=== PATIENT | male | born 1990 | race Caucasian/White ===

== ENCOUNTER 2019-10-13 10:00 | Emergency (ER) | payer SELFPAY ==
[2019-10-13 10:08] VITALS: BP 122/95; PULSE 104; RESP 16; TEMP 36.5; O2SAT 98; BMI 18.8
--- NOTE | 2019-10-13 10:13 | CT_ITS ---
WS: [id number] CT facial bones w con [id number] REASON FOR EXAM: mass IV CONTRAST ADMINISTERED: Omnipaque 300, 95 mL TOTAL EXAM DLP: 1022.[address] scans at [facility] use at least one of these dose optimization techniques: automat ed exposure control; mA and/or kV adjustment per patient size (includes targeted exams where dose is matched to clinical indication); or iterative reconstruction. FINDINGS: The left nasal passages markedly obstructed with a distended lesion that appears to be a la rge polyp. Line the maxillary antrum show bilateral air-fluid levels. Similar findings are noted in t he ethmoid sinuses. The large mass in the left nasal passage most likely is polypoid other lesions including neoplasms ca nnot be excluded and direct visualization recommended. There is no destructive changes of the bony structures to suggest osteomyelitis. The stomach splenoid sinuses as well as the frontal sinuses are normal. CT/CT facial bones w con [id number] IMPRESSION: Acute ethmoid and maxillary sinusitis A large bulky mass is seen in the left nasal cavity most likely polyp.
--- NOTE | 2019-10-13 10:23 | ED_ITS ---
HPI - Skin/Abscess/Foreign Bdy General: Chief complaint: Skin/Abscess/Foreign Body Stated complaint: KNOT ON THROAT Time Seen by Provider: 10/13/19 10:08 History of Present Illness: HPI narrative: Patient complains of a knot on the right side of his face at the jawline. It has been present for approximately 2- 3 days. MD complaint: abscess/boil Onset (ago): day(s) Tetanus up to date: unsure Location: face Severity: moderate Quality: aching, dull, constant and foreign body sensation Pain Consistency: constant Relieving factors: none Exacerbating factors: none Context: none Associated symptoms: Reports no associated symptoms Review of Systems General: Reports: 10 or more systems reviewed and unremarkable except in HPI and below PFSH ED PFSH: Social History Smoking and tobacco status: current every day smoker Physical Exam HENMT: COMMON NORMALS: normocephalic, hearing grossly normal bilaterally, external ears normal, external nose normal, nasal mucous membranes and turbinates normal, moist oral mucous membranes and oropharynx normal HEAD & SCALP: normocephalic NOSE: external nose normal and nasal mucous membranes and turbinates normal EXTERNAL EAR: Yes external ears normal Neck/C-Spine: COMMON NORMALS: full ROM, no lymphadenopathy, supple and no meningeal signs GENERAL: Yes trachea midline, Yes tender and Yes mass Neuro: MENINGEAL SIGNS: Yes no meningeal signs Course Vital Signs: Vital signs: Vital Signs Temperature 97.7 F 10/13/19 10:08 Pulse Rate 75 10/13/19 12:16 Respiratory Rate 16 10/13/19 10:08 Blood Pressure 107/79 10/13/19 12:16 Pulse Oximetry 97 10/13/19 12:16 [facility] - Skin/Abscess/Foreign Bdy Imaging Data^: Other CT: Radiologist's impression: large abscess in the soft tissue of the lower right jaw and upper neck Discharge Plan Discharge Patient Disposition: Home, Self-Care Clinical Impression: Cellulitis Qualifiers: Site of cellulitis: face Qualified Code(s): L03.211 - Cellulitis of face Abscess of skin or subcutaneous tissue Qualifiers: Site of cutaneous abscess: face Qualified Code(s): L02.01 - Cutaneous abscess of face Condition: Stable Prescriptions: New Augmentin 875-125 mg tablet 1 tab PO Q12H Qty: 20 RF: 0 No Action Tylenol Extra Strength 500 mg Tablet 500 mg PO PRN RF: 0 Discharge Orders: Discharge Order (Routine); Ordered 10/13/19 Ordered By: Gene Marie Coding Level of Care Code ED Exchange Trouble Shooter for Dewayneg Fwd Exam Expanded Problem Focused
[2019-10-13] MEDS: iohexol 300 mg/mL 100 mL Btl IV (11:43)
[2019-10-13 12:16] VITALS: BP 107/79; PULSE 75; O2SAT 97
[2019-10-13 13:35] VITALS: BP 114/80; PULSE 88; RESP 18; O2SAT 97
== END 2019-10-13 13:35 | disposition home or self-care (01) ==
PROVIDERS: Emergency Provider Family Medicine
DX: L02.01 Cutaneous abscess of face (principal); L03.211 Cellulitis of face; F17.210 Nicotine dependence, cigarettes, uncomplicated
CPT/HCPCS: 12345; 70487; 96365; 99283; J0690; Q9967

== ENCOUNTER 2020-03-16 13:24 | Inpatient (IN) | payer SELFPAY ==
--- NOTE | 2020-03-16 13:30 | ED_ITS ---
HPI - Psych General: Chief Complaint: Psychiatric Symptoms Stated Complaint: SI Time Seen by Provider: 03/16/20 13:26 Source: patient and EMS Mode of arrival: EMS Limitations: no limitations History of Present Illness: HPI Narrative: 29-year-old male states that he has been having severe depression and suicidality. He states been having increasing active suicidal thoughts over the last week. Patient states that he is scared he is going to kill himself and called EMS because he wants voluntarily to be admitted. Denies any worsening or improving factors. Patient states he was admitted to psychiatric facility 10 years ago and is not on any meds currently. MD complaint: suicidal ideation Onset (ago): day(s) Duration: constant History of same: Yes Relieving factors: none Exacerbating factors: none Associated symptoms: Reports depression and suicidal ideation Review of Systems Const: Denies: fever(s), chills, body aches or change in appetite Eyes: Denies: blurry vision or eye discomfort ENMT: Denies: throat pain or dental pain Card: Denies: chest pain Resp: Denies: dyspnea GI: Denies: abdominal pain, nausea, vomiting or diarrhea : Denies: dysuria Musc: Denies: neck pain or back pain Skin/Breast: Denies: rash Neuro: Denies: headache(s) Psych: Reports: depression and suicidal ideation Miguel/Lymph: Denies: easy bruising All/Imm: Denies: urticaria PFSH ED PFSH: Social History Smoking and tobacco status: current every day smoker Physical Exam Const: COMMON NORMALS: no acute distress, patient oriented x3 and healthy appearing HENMT: COMMON NORMALS: normocephalic and atraumatic HEAD & SCALP: normocephalic and atraumatic Eye: COMMON NORMALS: Equal, round and reactive pupils present and EOMs intact bilaterally PUPIL: Yes Equal, round and reactive pupils present Neck/C-Spine: COMMON NORMALS: full ROM and supple Chest: COMMONS NORMALS: normal inspection of the chest and normal palpation of entire chest wall Resp: COMMON NORMALS: normal respiratory effort, No retractions, No use of accessory muscles and clear to auscultation bilaterally AUSCULTATION: clear to auscultation bilaterally Cardio: COMMON NORMALS: regular rate, regular rhythm and No murmurs present (Cardio) RATE: regular rate RHYTHM: regular rhythm GI: COMMON NORMALS: Normal to inspection, nondistended, normoactive bowel sounds present, Soft to palpation, non-tender and no masses PALPATION: Yes Soft to palpation Extremity: COMMON NORMALS: normal to inspection and full ROM Neuro: COMMON NORMALS: patient oriented x3, moves all extremities and no focal motor deficits Psych: COMMON NORMALS: mental status grossly normal and cooperative MOOD & AFFECT: Yes depressed mood THOUGHT CONTENT: Yes Suicidality present Skin: COMMON NORMALS: no rashes or lesions noted and no wounds GENERAL SKIN EXAM: no rashes or lesions noted MDM - Psych MDM Narrative: Medical decision making narrative: Patient presents for suicidal ideations. Patient voluntarily wanting to be admitted. I spoke to psychiatrist Dr. Gallardo and patient is medically cleared and will admit. Patient has been stable while here. Lab Data: Labs: Lab Results 03/16/20 03/16/20 Range/Units 13:53 13:53 WBC 9.0 (4.0-10.0) 10^3/ uL RBC 5.17 (4.1-5.3) 10^6/u L Hgb 16.8 H (11.7-16.6) g/dL Hct 51.9 (42.0-52.0) % MCV 100.4 H (80-94) fL MCH 32.5 (28.0-34.0) pg MCHC 32.4 (30.0-36.0) g/dL RDW 15.1 (12.1-15.1) % Plt Count 240 (130-400) 10^3/c mm MPV 9.3 (7.4-10.4) fL Neut % (Auto) 52.1 % Lymph % (Auto) 35.3 % Forest % (Auto) 9.1 % Eos % (Auto) 2.2 % Baso % (Auto) 1.1 % Neut # (Auto) 4.68 (1.8-7.7) 10^3/u L Lymph # (Auto) 3.2 (0.8-4.8) 10^3/u L Forest # (Auto) 0.8 (0.2-0.9) 10^3/u L Eos # (Auto) 0.2 (0.0-0.8) 10^3/u L Baso # (Auto) 0.1 (0.0-0.1) 10^3/u L Nucleated RBC % (a uto) 0 % Nucleated RBCs # 0.0 /100WBC Sodium 143 (136-145) mmol/L Potassium 4.1 (3.5-5.1) mmol/L Chloride 103 (98-107) mmol/L Carbon Dioxide 24 (22-29) mmol/L Anion Gap 20.1 H (5-19) BUN 10 (6-20) mg/dL Creatinine 0.7 (0.7-1.2) mg/dL GFR Calculation 134.3 H (90-130) mL/min Glucose 73 (65-115) mg/dL Calculated Osmolal ity 294 (285-295) mOsm/k g Calcium 9.1 (8.5-10.5) mg/dL Total Bilirubin 0.4 (0.15-1.2) mg/dL AST 76 H (0-40) U/L ALT 51 H (0-41) U/L Alkaline Phosphata se 109 (40-130) IU/L Total Protein 8.3 (6.6-8.7) g/dL Albumin 4.7 (3.5-5.2) g/dL Globulin 3.6 (1.3-4.6) g/dL Salicylates < 0.3 L (3-10) mg/dL Acetaminophen < 5.0 L (10-30) ug/mL Ethyl Alcohol 152 H (0-10) mg/dL Discharge Plan Discharge Patient Disposition: Admitted As Inpatient Clinical Impression: Suicidal ideation Condition: Stable Coding Level of Care Code ED Plastic Parts Fabricator for Nhan Fwd Exam Comprehensive
[2020-03-16 13:37] VITALS: BP 126/81; PULSE 110; RESP 18; TEMP 36.7; O2SAT 96; BMI 18.0
[2020-03-16 14:00] LABS: Basophils # 0.1 10^3/uL (0.0-0.1); Basophils % 1.1 %; Eosinophils # 0.2 10^3/uL (0.0-0.8); Eosinophils % 2.2 %; Hematocrit 51.9 % (42.0-52.0); Hemoglobin 16.8 g/dL (11.7-16.6); Lymphocytes # 3.2 10^3/uL (0.8-4.8); Lymphocytes % 35.3 %; Mean Corpuscular HGB Conc 32.4 g/dL (30.0-36.0); Mean Corpuscular Hemoglobin 32.5 pg (28.0-34.0); Mean Corpuscular Volume 100.4 fL (80-94); Mean Platelet Volume 9.3 fL (7.4-10.4); Monocytes # 0.8 10^3/uL (0.2-0.9); Monocytes % 9.1 %; Neutrophils # 4.68 10^3/uL (1.8-7.7); Neutrophils % 52.1 %; Nucleated Red Blood Cells % 0 %; Platelet Count 240 10^3/cmm (130-400); Red Blood Count 5.17 10^6/uL (4.1-5.3); Red Cell Distribution Width 15.1 % (12.1-15.1)
[2020-03-16] MEDS: LORazepam 1 mg Tablet PO (14:02)
[2020-03-16 14:26] LABS: Alanine Aminotransferase 51 U/L (0-41); Albumin Level 4.7 g/dL (3.5-5.2); Alcohol Level 152 mg/dL (0-10); Alkaline Phosphatase 109 IU/L (40-130); Anion Gap 20.1 (5-19); Aspartate Amino Transferase 76 U/L (0-40); Blood Urea Nitrogen 10 mg/dL (6-20); Calcium 9.1 mg/dL (8.5-10.5); Carbon Dioxide 24 mmol/L (22-29); Chloride 103 mmol/L (98-107); Creatinine Clr Calc Pharmacy 115.9178; Globulin 3.6 g/dL (1.3-4.6); Glomerular Filtration Rate 134.3 mL/min (90-130); Glucose 73 mg/dL (65-115); Osmolality Calculated 294 mOsm/kg (285-295); Potassium 4.1 mmol/L (3.5-5.1); Sodium 143 mmol/L (136-145); Total Bilirubin 0.4 mg/dL (0.15-1.2); Total Protein 8.3 g/dL (6.6-8.7)
[2020-03-16 14:28] LABS: Acetaminophen < 5.0 ug/mL (10-30); Salicylate < 0.3 mg/dL (3-10)
[2020-03-16 14:54] VITALS: BP 119/83; PULSE 117; RESP 20; TEMP 36.5; O2SAT 96
[2020-03-16 15:23] LABS: Amphetamines Screen Urine Negative (Negative); Barbiturates Screen Urine Negative (Negative); Benzodiazepines Screen Urine Negative (Negative); Cocaine Screen Urine Negative (Negative); Opiate Screen Urine Negative (Negative); PCP Screen Urine Negative (Negative); THC Screen Urine Positive (Negative)
--- NOTE | 2020-03-16 17:03 | PM.NHP ---
Providers/Chief Complaint Admitting Physician: Sami Gallardo M.D. Chief Complaint: SI HPI NPU History of Present Illness King Miner is a 29 year old male who has been having severe depression and suicidality. He has had increasingly active suicidal thoughts over the last week. Patient states that he is scared he is going to kill himself and called EMS because he wanted to be admitted voluntarily. Denies any worsening or improving factors. Patient states he was admitted to psychiatric facility 10 years ago and is not on any meds currently. Review of Systems Narrative: Const: Denies: fever(s), chills, body aches or change in appetite Eyes: Denies: blurry vision or eye discomfort ENMT: Denies: throat pain or dental pain Card: Denies: chest pain Resp: Denies: dyspnea GI: Denies: abdominal pain, nausea, vomiting or diarrhea : Denies: dysuria Musc: Denies: neck pain or back pain Skin/Breast: Denies: rash Neuro: Denies: headache(s) Psych: Reports: depression and suicidal ideation Miguel/Lymph: Denies: easy bruising All/Imm: Denies: urticaria Meds NPU Home Medications Medication Instructions Recorded Confirmed Last Taken Type No Known Home Medications 03/16/20 03/16/20 Unknown History Allergies Allergy/AdvReac Type Severity Reaction Status Date / Time No Known Allergies Allergy Verified 10/13/19 10:14 PFSH NPU PFSH: Social History Smoking and tobacco status: current every day smoker Other Psychiatric History: Other Psychiatric History: Patient says he has been treated for bipolar disorder since he was 17. He was seeing a counselor since age 13. Vitals/I&O/Wt Last Vital Signs Temp 97.7 F 03/16/20 14:54 Pulse 117 H 03/16/20 14:54 Resp 20 H 03/16/20 14:54 BP 119/83 03/16/20 14:54 Pulse Ox 96 03/16/20 14:54 Weight last 48 hrs Weight 115 lb Physical Exam Narrative: EXAM NARRATIVE: Const: no acute distress, patient oriented x3 and healthy appearing HENMT: normocephalic and atraumatic Eye: Equal, round and reactive pupils and EOMs intact bilaterally Neck/C-Spine: full ROM and supple Chest: normal inspection of the chest and normal palpation of entire chest wall Resp: normal respiratory effort, No retractions, No use of accessory muscles and clear to auscultation bilaterally Cardio: regular rate, regular rhythm and No murmurs GI: Normal to inspection, non-distended, normoactive bowel sounds , Soft to palpation, non-tender and no masses Extremity: normal to inspection and full ROM Neuro: patient oriented x3, moves all extremities and no focal motor deficits Psych: mental status grossly normal and cooperative MOOD & AFFECT: depressed mood THOUGHT CONTENT: Suicidality Skin: no rashes or lesions noted and no wounds GENERAL SKIN EXAM: no rashes or lesions noted Data NPU : 03/16/20 13:53 03/16/20 13:53 A&P Assessment and plan (1) Major depress dis, severe: Dr. Polk and the patient will discuss pharmacotherapy and initiate same. Status: Acute (2) Nightmare disorder: Initiation of prazosin. Consider referral for sleep study. Status: Acute Involuntary Hold Information 96 Hour Hold: 96 Hour Involuntary Admission: No Attestations NPU Medical Necessity Statement*: I anticipate 5-7 midnights at the very least. Time Spent in Patient Care: Greater than 35 minutes (>than 50% of time spent in counselling and/or direct pt care on unit). 90 minutes Coding Level of Care Code Acute District Medical Examiner for g Fwd Diagnoses Major depress dis, severe F32.2 Nightmare disorder F51.5
[2020-03-16] MEDS: nicotine 2 mg Gum BUCCAL ×2 (17:27→22:10)
[2020-03-16] MEDS: hyDROXYzine 25 mg Capsule 50 MG PO (17:27)
--- NOTE | 2020-03-16 17:27 | PC.NURSE ---
Addendum entered by Annabel Yo LPN 03/16/20 18:42: prn med effective no further c/o anxiety Original Note: PRN VISTARIL 50 MG GIVEN PO PER PT C/O ANXIETY. PT IN ROOM, WITHDRAWN, TEARFUL C/O JUST FEELING DOWN WILL CONT TO MONITOR
[2020-03-16 20:43] VITALS: BP 106/67; PULSE 124; RESP 18; TEMP 36.4; O2SAT 94
[2020-03-16] MEDS: trazodone 50 mg Tablet PO (20:48)
[2020-03-16] MEDS: OLANZapine 5 mg ODT PO (20:48)
--- NOTE | 2020-03-16 23:20 | PC.NURSE ---
Addendum entered by Saida Strange RN 03/17/20 04:54: Pt responded well to medications given. He reports a decrease in anxiety and slept through the night soundly Original Note: PRN's trazodone/visteril/nicotine gum Patient received 50mg PO visteril for anxiety, 50mg PO Trazodone for sleep, and requested nicotine gum for tobacco withdrawl. Will continue to monitor patient.
[2020-03-17 06:00] VITALS: BP 143/78; PULSE 115; RESP 16; TEMP 36.7; O2SAT 96
[2020-03-17] MEDS: multivitamin therapeutic Tablet 1 TAB PO (08:13)
[2020-03-17] MEDS: folic acid 1 mg Tablet PO (08:13)
[2020-03-17] MEDS: thiamine 100 mg Tablet PO (08:13)
--- NOTE | 2020-03-17 12:54 | P.PN_ITS ---
Subjective NPU Subjective: Interval history: Patient presents today reporting that he is doing okay. He acknowledges that patient does have some role in his situation but also identifies that depression and mood instability also play a role. He endorsed having bipolar disorder and having a history of being on Lexapro, Remeron, trazodone and Risperdal but is been over a decade and he does not really recall what it was like. Once he turns 19 he discontinued the medications and he has been struggling in his life with addiction and instability volatile explosive relationships ever since. We discussed the risk benefits and alternatives of restarting the Lexapro as well as starting Lamictal and he understood and agreed to proceed as is documented in this note including our discussion was a discussion of the risks of Hall-Bang syndrome with Lamictal. He additionally reported that he in Dr. Gallardo discussed prazosin for his nightmares. Mental Status Exam MSE Comments: This is a slender white male with adequate dress, grooming and eye contact with a significant scar in the middle of his forehead starting at his hairline and going down about two th[address] way. No abnormal movements except for psychomotor retardation. Cooperative with exam in no acute distress. Speech was decreased rate and volume mood described as depressed affect congruent. Thought process organized. Thought content: Denied isolation he does endorse thoughts of self-harm. There were no delusions reported or noted, he denied any auditory visual hallucinations. Attention and concentration were intact and memory appeared reliable but none were formally tested. He is alert and oriented x3. Insight and judgment are fair, impulse control is limited. Vitals/I&O/Wt Last Vital Signs Temp 97.6 F 03/17/20 22:00 Pulse 91 03/17/20 22:00 Resp 18 03/17/20 22:00 BP 111/74 03/17/20 22:00 Pulse Ox 96 03/17/20 22:00 Weight last 48 hrs Weight 52.163 kg Data NPU : 03/16/20 13:53 03/16/20 13:53 A&P Assessment and plan (1) Nightmare disorder: Status: Acute (2) Major depress dis, severe: Status: Acute (3) Suicidal ideation: Status: Acute (4) PTSD (post-traumatic stress disorder): Status: Acute (5) Borderline personality disorder: Status: Acute Additional A&P Information This is a 29-year-old white male with a long history of trauma, cluster B pathology mood instability depression and anxiety as well as active substance abuse who presents open to treatment and initiation of medication. 1. Continue current medication.; Start Lexapro 10 mg p.o. every morning and Lamictal 25 mg p.o. every morning with the plan to titrated to 100 mg over the span of 4 weeks. 2. Continue every 15 minute checks for safety. 3. Encourage individual, group and milieu therapy. 4. Work with treatment team for to establish aftercare and recommend sober living at the highest level of treatment to which he is willing to commit. Involuntary Hold Information 96 Hour Hold: 96 Hour Involuntary Admission: No Attestations NPU Medical Necessity Statement*: Inpatient hospitalization is medically necessary and the clinically appropriate intervention at this time. We will monitor me dications, add medications and make changes as indicated. He will be in the hospital for over 2 midnights. Likely length of stay 2 to 4 days. Coding Level of Care Code Acute President And Chief Executive Officer for Nhan Ruano Diagnoses Nightmare disorder F51.5 Major depress dis, severe F32.2 Suicidal ideation R45.851 PTSD (post-traumatic stress disorder) F43.10 Borderline personality disorder F60.3
[2020-03-17 14:00] VITALS: BP 114/80; PULSE 94; RESP 18; TEMP 36.3; O2SAT 97
[2020-03-17] MEDS: nicotine 2 mg Gum BUCCAL ×2 (15:03→17:59)
[2020-03-17 22:00] VITALS: BP 111/74; PULSE 91; RESP 18; TEMP 36.4; O2SAT 96
[2020-03-17] MEDS: trazodone 50 mg Tablet PO (22:10)
[2020-03-17] MEDS: hyDROXYzine 25 mg Capsule 50 MG PO (22:10)
[2020-03-17] MEDS: OLANZapine 5 mg ODT PO (22:11)
[2020-03-18 06:00] VITALS: BP 133/85; PULSE 81; RESP 16; TEMP 36.5; O2SAT 97
[2020-03-18] MEDS: escitalopram 10 mg Tablet PO (08:44)
[2020-03-18] MEDS: multivitamin therapeutic Tablet 1 TAB PO (08:44)
[2020-03-18] MEDS: folic acid 1 mg Tablet PO (08:44)
[2020-03-18] MEDS: lamoTRIgine 25 mg Tablet PO (08:44)
[2020-03-18] MEDS: thiamine 100 mg Tablet PO (08:44)
--- NOTE | 2020-03-18 13:48 | PM.NPN ---
Subjective NPU Subjective: Interval history: King presented today reporting that he is tolerating the medication thus far. We discussed the risks, benefits and alternatives of allowing another day to adjust to the medication and then discharging him tomorrow and he understood and agreed to proceed as is documented in this note. He is somewhat anxious about not missing any more work but is very committed to the idea of changing his patterns through outpatient treatment. He reports he is eating fine and sleeping better. Mental Status Exam MSE Comments: This is a slender white male with adequate dress, grooming and eye contact with a significant scar in the middle of his forehead starting at his hairline and going down about two th[address] way. No abnormal movements except for improving psychomotor retardation. Cooperative with exam in no acute distress. Speech was decreased rate and volume mood described as a little better, affect congruent. Thought process organized. Thought content: Denied isolation he does endorse thoughts of self-harm. There were no delusions reported or noted, he denied any auditory visual hallucinations. Attention and concentration were intact and memory appeared reliable but none were formally tested. He is alert and oriented x3. Insight and judgment are improving, impulse control is limited, but improving. Vitals/I&O/Wt Last Vital Signs Temp 98.1 F 03/18/20 22:00 Pulse 85 03/18/20 22:00 Resp 18 03/18/20 22:00 BP 117/77 03/18/20 22:00 Pulse Ox 97 03/18/20 22:00 Data NPU : 03/16/20 13:53 03/16/20 13:53 A&P Additional A&P Information (1) Nightmare disorder: (2) Major depress dis, severe: (3) Suicidal ideation: (4) PTSD (post-traumatic stress disorder): (5) Borderline personality disorder: Additional A&P Information This is a 29-year-old white male with a long history of trauma, cluster B pathology mood instability depression and anxiety as well as active substance abuse who presents open to treatment and initiation of medication. 1. Continue current medication. 2. Continue every 15 minute checks for safety. 3. Encourage individual, group and milieu therapy. 4. Work with treatment team for to establish aftercare and recommend sober living at the highest level of treatment to which he is willing to commit. Involuntary Hold Information 96 Hour Hold: 96 Hour Involuntary Admission: No Attestations NPU Medical Necessity Statement*: Inpatient hospitalization is medically necessary and the clinically appropriate intervention at this time. We will monitor medications, add medications and make changes as indicated. Likely length of stay 1-3 days. Coding Level of Care Code Acute Pharmaceutical Scientist for Nhan Ruano
[2020-03-18 13:54] VITALS: BP 119/88; PULSE 101; RESP 18; TEMP 36.3; O2SAT 97
--- NOTE | 2020-03-18 15:04 | PC.RESP ---
Smoking Cessation information sent to patient.
[2020-03-18] MEDS: nicotine 2 mg Gum BUCCAL ×2 (17:41→21:00)
[2020-03-18] MEDS: prazosin 1 mg Capsule PO (21:00)
[2020-03-18 22:00] VITALS: BP 117/77; PULSE 85; RESP 18; TEMP 36.7; O2SAT 97
--- NOTE | 2020-03-19 04:26 | PC.NURSE ---
King is nervous about trying to go back to work at [employer] because he got drunk and thinks he lost his job
[2020-03-19 06:00] VITALS: BP 116/85; PULSE 91; RESP 16; TEMP 36.6; O2SAT 95
--- NOTE | 2020-03-19 06:17 | PM.NDC ---
Diagnoses at Discharge Discharge Diagnosis (1) Nightmare disorder: Status: Acute (2) Major depress dis, severe: Status: Acute (3) Suicidal ideation: Status: Resolved (4) PTSD (post-traumatic stress disorder): Status: Acute (5) Borderline personality disorder: Status: Acute Reason for Visit Reason for Visit: SI Brief History: History of Present Illness King Miner is a 29 year old male who has been having severe depression and suicidality. He has had increasingly active suicidal thoughts over the last week. Patient states that he is scared he is going to kill himself and called EMS because he wanted to be admitted voluntarily. Denies any worsening or improving factors. Patient states he was admitted to psychiatric facility 10 years ago and is not on any meds currently. Review of Systems Narrative: Const: Denies: fever(s), chills, body aches or change in appetite Eyes: Denies: blurry vision or eye discomfort ENMT: Denies: throat pain or dental pain Card: Denies: chest pain Resp: Denies: dyspnea GI: Denies: abdominal pain, nausea, vomiting or diarrhea : Denies: dysuria Musc: Denies: neck pain or back pain Skin/Breast: Denies: rash Neuro: Denies: headache(s) Psych: Reports: depression and suicidal ideation Miguel/Lymph: Denies: easy bruising All/Imm: Denies: urticaria Meds NPU Home Medications Medication Instructions Recorded Confirmed Last Taken Type No Known Home Medications 03/16/20 03/16/20 Unknown History Allergies Allergy/AdvReac Type Severity Reaction Status Date / Time No Known Allergies Allergy Verified 10/13/19 10:14 PFS NPU PFSH: Social History Smoking and tobacco status: current every day smoker Other Psychiatric History: Other Psychiatric History: Patient says he has been treated for bipolar disorder since he was 17. He was seeing a counselor since age 13. Hospital Course Hospital Course King presented to the emergency department reporting depression anxiety and possible an active addiction. He was admitted to the neuropsychiatric unit for definitive treatment of those issues. On the unit it was noted that he had been off of his medication for a long time and struggling with addiction. He quickly acclimated to the individual, group and milieu therapies available. He was started on Lexapro and a titration of Lamictal and he responded well to those medications. During the hospitalization, he had routine laboratory studies which were within normal limits except for a few outliers. Additionally he received a general medical evaluation which was also within normal limits and revealed no new acute processes. Discharge Summary At the time of discharge, he was absent lethality and psychosis. His mood and anxiety were well managed. He endorsed a plan to avoid all drugs of abuse and to follow-up with outpatient recommendations/treatment team recommendations. During hospitalization he was evaluated and deemed absent credible lethality and he had received maximum benefit from an inpatient hospitalization so he was discharged. Involuntary Hold Information 96 Hour Hold: 96 Hour Involuntary Admission: No Mental Status Exam MSE Comments: This is a slender white male with adequate dress, grooming and eye contact with a significant scar in the middle of his forehead starting at his hairline and going down about two th[address] way. No abnormal movements except for improving psychomotor retardation. Cooperative with exam in no acute distress. Speech was more normal rate and volume. Mood described as getting better, affect congruent. Thought process organized. Thought content: Denied isolation he does endorse thoughts of self-harm. There were no delusions reported or noted, he denied any auditory visual hallucinations. Attention and concentration were intact and memory appeared reliable but none were formally tested. He is alert and oriented x3. Insight and judgment are improving, impulse control is improving. Discharge Data Vitals: Last Vital Signs Temp 98.1 F 03/18/20 22:00 Pulse 85 03/18/20 22:00 Resp 18 03/18/20 22:00 BP 117/77 03/18/20 22:00 Pulse Ox 97 03/18/20 22:00 Discharge Plan Discharge Patient Disposition: Home Condition: Stable Prescriptions: New prazosin 1 mg Capsule 1 mg PO BEDTIME 30 Days Qty: 30 RF: 1 lamotrigine 25 mg Tablet 25 mg PO DAILY 19 Days Qty: 40 RF: 0 escitalopram oxalate 10 mg Tablet 10 mg PO DAILY 30 Days Qty: 30 RF: 1 Vitamin B-1 (mononitrate) 100 mg Tablet 100 mg PO DAILY 30 Days Qty: 30 RF: 1 Lamictal 100 mg tablet 100 mg PO DAILY 30 Days Qty: 30 RF: 1 Continued No Known Home Medications RF: 0 Discharge Orders: Discharge Order (Routine); Ordered 10/10/20 Ordered By: Rhys Polk Discharge Diet: Regular Discharge Activity: Resume usual activity Patient Instructions: Prazosin (By mouth), Lamotrigine (By mouth), Escitalopram (By mouth), Post Traumatic Stress Disorder (DC), Borderline Personality Disorder (DC), Anxiety (DC) Discharge Date/Time: 03/19/20 11:52 Discharge Attestations NPU Time Spent in Discharge Care*: less than 30 min Specific Discharge Activities: Specific discharge activities: educating patient, discussing with mental health case manager/social workers/dc planners, documenting/other paperwork and evaluating patient/reviewing data Coding Level of Care Code Acute Felt Hat Inspector And Packer for g Fwd Diagnoses Nightmare disorder F51.5 Major depress dis, severe F32.2 Suicidal ideation R45.851 PTSD (post-traumatic stress disorder) F43.10 Borderline personality disorder F60.3
[2020-03-19 06:35] VITALS: BP 116/85; PULSE 91; RESP 16; TEMP 36.6; O2SAT 95
[2020-03-19] MEDS: folic acid 1 mg Tablet PO (08:57)
[2020-03-19] MEDS: multivitamin therapeutic Tablet 1 TAB PO (08:57)
[2020-03-19] MEDS: lamoTRIgine 25 mg Tablet PO (08:57)
[2020-03-19] MEDS: escitalopram 10 mg Tablet PO (08:57)
[2020-03-19] MEDS: thiamine 100 mg Tablet PO (08:57)
[2020-03-19 11:47] VITALS: BP 116/85; PULSE 91; RESP 16; TEMP 36.6; O2SAT 95
== END 2020-03-19 11:52 | disposition home or self-care (01) | DRG 885 ==
LOC: ER 14:24 → NP 14:32
PROVIDERS: Emergency Medicine; Visit Provider Psychiatry & Neurology Psychiatry
DX: F33.2 Major depressive disorder, recurrent severe without psychotic features (principal); R45.851 Suicidal ideations; F43.11 Post-traumatic stress disorder, acute; F51.5 Nightmare disorder; F60.3 Borderline personality disorder; F17.210 Nicotine dependence, cigarettes, uncomplicated
CPT/HCPCS: 12345; 36415; 80053; 80306; 80307; 85025; 99284

== ENCOUNTER 2020-06-26 08:52 | Emergency (ER) | payer SELFPAY ==
[2020-06-26 08:54] VITALS: BP 120/74; PULSE 110; RESP 16; TEMP 36.4; O2SAT 98; BMI 18.8
--- NOTE | 2020-06-26 08:56 | XRR_ITS ---
PROCEDURE INFORMATION: Exam: XR Right Foot Complete Exam date and time: 06/26/2020 9:14 AM Age: 29 years old Clinical indication: Pain; Foot; Right; Additional info: Trauma TECHNIQUE: Imaging protocol: XR Right foot. Views: 3 or more views. COMPARISON: No relevant prior studies available. FINDINGS: Bones/joints: Normal. Soft tissues: Normal. XR/XR foot RT min 3V* [id number] IMPRESSION: No acute findings.
--- NOTE | 2020-06-26 08:56 | W.ED.LOWEXIN ---
HPI - Extremity Injury (Lower) General: Chief Complaint: Extremity Injury, Lower Stated Complaint: R FOOT/ ANKLE PAIN Time Seen by Provider: 06/26/20 08:53 History of Present Illness: HPI Narrative: Patient arrives via ambulance with complaint of right foot pain. Patient he stopped the ground last night and ever since then his heel has hurt and he cannot bear weight on it. complaint: foot injury Onset (ago): hour(s) Injury: Right: foot Type of Injury: blunt Place: street/outdoors Severity: mild Severity scale (1-10): 3 Relieving factors: immobilization Exacerbating factors: weight bearing Context: direct blow Associated symptoms: Reports no associated symptoms Other symptoms: none Treatments prior to arrival: NSAIDS Review of Systems Const: Denies: fever(s), chills or body aches Eyes: Denies: change in vision or blurry vision ENMT: Denies: throat pain or nasal congestion Card: Denies: chest pain or dyspnea on exertion Resp: Denies: dyspnea, productive cough or non-productive cough GI: Denies: abdominal pain, nausea or vomiting : Denies: difficulty urinating Musc: Reports: extremity pain (Heel right foot is tender after stomping ground last night) Skin/Breast: Denies: rash Neuro: Denies: headache(s) Psych: Denies: anxiety or depression Miguel/Lymph: Denies: easy bruising PFS ED PFSH: Social History Smoking and tobacco status: current every day smoker Physical Exam Const: COMMON NORMALS: no acute distress Extremity: RIGHT LOWER EXTREMITY: Yes foot & digits (Right heel is tender no swelling bruising or other problems noted) Psych: COMMON NORMALS: mental status grossly normal Course Vital Signs: Vital signs: Vital Signs Temperature 97.6 F 06/26/20 08:54 Pulse Rate 110 H 06/26/20 08:54 Respiratory Rate 16 06/26/20 09:01 Blood Pressure 120/74 06/26/20 08:54 Pulse Oximetry 98 06/26/20 08:54 MDM - Extremity Injury (Lower) MDM Narrative: Medical decision making narrative: Heal without fracture. Patient follow-up with his family medical provider. Can use ice as needed and ibuprofen [id number]. Imaging Data^: Xray Ortho: My impression: Possible subluxation talus, no fracture seen in the body. Discharge Plan Discharge Patient Disposition: Home Clinical Impression: Contusion of right heel Qualifiers: Encounter type: initial encounter Qualified Code(s): S90.31XA - Contusion of right foot, initial encounter Condition: Stable Prescriptions: New Motrin IB 200 mg capsule 400 mg PO TID PRN (Reason: pain) Qty: 14 RF: 0 No Action prazosin 1 mg capsule 1 mg PO BEDTIME@2200 RF: 0 Lamictal 100 mg tablet 100 mg PO DAILY@2200 RF: 0 Vitamin B-1 (mononitrate) 100 mg tablet 100 mg PO DAILY@2200 RF: 0 Discharge Orders: Discharge ED (Routine); Ordered 06/26/20 Ordered By: Jaylan Mckinney Discharge Diet: Usual diet Discharge Activity: Increase activity as tolerated Patient Instructions: Contusion in Adults (ED) Activity Restrictions/Additional Instructions: Follow-up with medical provider as directed. Take medications as prescribed. Return to the ER or your medical provider if condition worsens. Please read and understand discharge instructions. If any questions ask please. Coding Level of Care Code ED Mash Filter Press Operator for Nhan Fwd Exam Expanded Problem Focused
[2020-06-26 09:01] VITALS: RESP 16
--- NOTE | 2020-06-26 09:23 | PC.NURSE ---
Read and agree with triage and physical assessments.
[2020-06-26 09:32] VITALS: RESP 16
== END 2020-06-26 09:32 | disposition home or self-care (01) ==
PROVIDERS: Emergency Provider Nurse Practitioner Family
DX: S90.31XA Contusion of right foot, initial encounter (principal); F17.210 Nicotine dependence, cigarettes, uncomplicated; W22.09XA Striking against other stationary object, initial encounter
CPT/HCPCS: 12345; 73630; 99281; 99282

== ENCOUNTER 2020-09-06 13:38 | Inpatient (IN) | payer SELFPAY ==
[2020-09-06 14:19] VITALS: BP 137/94; PULSE 99; RESP 16; TEMP 36.5; O2SAT 98; BMI 18.8
--- NOTE | 2020-09-06 14:40 | PC.NURSE ---
patient stated this has been going on for his whole life, c/o left arm pain, no acute distress noted. patient stated he had thoughts of harm self, not sure which plan yet. monitor 1:1
[2020-09-06 15:24] LABS: Amphetamines Screen Urine Negative (Negative); Barbiturates Screen Urine Negative (Negative); Benzodiazepines Screen Urine Negative (Negative); Cocaine Screen Urine Negative (Negative); Opiate Screen Urine Negative (Negative); PCP Screen Urine Negative (Negative); THC Screen Urine Positive (Negative); Urine Appearance Clear (CLEAR); Urine Color Dark Yellow (Yellow)
[2020-09-06 15:24] LABS: Basophils % 0.3 %; Eosinophils % 0.1 %; Hematocrit 41.2 % (42.0-52.0); Hemoglobin 14.1 g/dL (11.7-16.6); Mean Corpuscular HGB Conc 34.2 g/dL (30.0-36.0); Mean Corpuscular Hemoglobin 33.6 pg (28.0-34.0); Mean Corpuscular Volume 98.1 fL (80-94); Mean Platelet Volume 10.2 fL (7.4-10.4); Monocytes # 0.5 10^3/uL (0.2-0.9); Monocytes % 4.5 %; Neutrophils # 8.77 10^3/uL (1.8-7.7); Neutrophils % 84.7 %; Nucleated Red Blood Cells % 0 %; Platelet Count 171 10^3/cmm (130-400); Red Cell Distribution Width 12.7 % (12.1-15.1); White Blood Count 10.4 10^3/uL (4.0-10.0)
[2020-09-06 15:25] LABS: Add Urine Microscopic? YES; Bilirubin Urine 1+ (Negative); Blood Urine 3+ (Negative); Glucose Urine UA Norm (Normal); Ketones Urine 2+ (Negative); Leukocyte Esterase Urine Negative (Negative); Nitrate Urine Negative (Negative); Protein Urine Neg (Negative); Urobilinogen Urine 1 mg/dL (Negative); pH Urine 6.5 (5-7)
[2020-09-06 15:28] LABS: Add Urine Culture? Yes; Bacteria Urine 1+ /hpf; Mucus Urine 2+ /hpf; RBC Urine 25-40 /hpf (0-2)
[2020-09-06 15:32] LABS: Alanine Aminotransferase 11 U/L (0-41); Albumin Level 4.3 g/dL (3.5-5.2); Alkaline Phosphatase 108 IU/L (40-130); Anion Gap 17.9 (5-19); Aspartate Amino Transferase 16 U/L (0-40); Blood Urea Nitrogen 8 mg/dL (6-20); Calcium 9.2 mg/dL (8.5-10.5); Carbon Dioxide 24 mmol/L (22-29); Chloride 102 mmol/L (98-107); Globulin 3.1 g/dL (1.3-4.6); Glucose 97 mg/dL (65-115); Osmolality Calculated 288 mOsm/kg (285-295); Potassium 3.9 mmol/L (3.5-5.1); Sodium 140 mmol/L (136-145); Total Bilirubin 0.3 mg/dL (0.15-1.2); Total Protein 7.4 g/dL (6.6-8.7)
[2020-09-06 15:33] LABS: Acetaminophen < 5.0 ug/mL (10-30); Alcohol Level < 10 mg/dL (0-10); Salicylate < 0.3 mg/dL (3-10)
--- NOTE | 2020-09-06 15:52 | PC.NURSE ---
scratches noted to left arm.
--- NOTE | 2020-09-06 16:47 | PC.NURSE ---
laceration to left arm noted, denied any pain at this time.
[2020-09-06 17:54] VITALS: BP 120/84; PULSE 85; RESP 16; O2SAT 97
[2020-09-06 18:10] VITALS: BP 130/82; PULSE 69; RESP 20; TEMP 36.6; O2SAT 99
[2020-09-06 21:14] VITALS: BP 111/75; PULSE 90; RESP 16; TEMP 36.2; O2SAT 99
--- NOTE | 2020-09-06 23:44 | W.ED.PSYCH ---
HPI - Psych General: Chief Complaint: Psychiatric Symptoms Stated Complaint: 96 PER OFFICER Time Seen by Provider: 09/06/20 14:20 Source: patient and police Mode of arrival: other (law enforcement) Limitations: no limitations History of Present Illness: HPI Narrative: This is a 29 year old male with a history of depression, suicidal ideations, who was brought in to the ED by law enforcement with complaints of suicidal ideations. He has a lot of social stressors including the fact that he is unemployed, homeless, and was in an argument with his girlfriend. He states i have wasted 28 years of my life and there is no reason to keep living. He admits to marijuana use. He was brought in to be evaluated and psychiatric management. MD complaint: suicidal ideation and feels depressed Onset (ago): day(s) (1) Duration: constant History of same: Yes Relieving factors: none Exacerbating factors: alcohol and drug use Associated psychiatric symptoms: depression and suicidal ideation Associated symptoms: Reports depression and suicidal ideation Treatments prior to arrival: none If self harm: admits thoughts of self harm and has plan Details of plan: he did not go into details, but says he can cut his wrist, jump off a water tower, or other things. Review of Systems General: Reports: 10 or more systems reviewed and unremarkable except in HPI and below Psych: Reports: depression and suicidal ideation [facility] ED PFSH: Medical History (Updated 09/14/20 @ 10:00 by [place] Fi[place] [facility] [place] Major depressive disorder, recurrent, in partial remission King feels that depression and past trauma have changed his daily functions. Symptoms have interfered with work and his relationships, sleep, diet, and overall enjoyment of life. He has had past trauma and has nightmares, night terrors, flashbacks, and exaggerated startle response to loud noises. Reported symptoms: fatigue, bad dreams, his mind goes blank, trouble remembering, thoughts hard to dismiss, trouble sleeping, easily annoyed and irritability, loss of sexual desire, nervous feeling, excessive worries and fears, excessive fears of crowds, no interests in things, feeling inferior, change in personality, work difficulties, thoughts of harming self. Social History (Updated 09/05/20 @ 13:56 by Lolis Latif LPN) Smoking and tobacco status: current every day smoker cigarettes Years cigarettes smoked: 12 Quit status (tobacco): not considering quitting Second hand smoke exposure: No Physical Exam Const: COMMON NORMALS: no acute distress, average body habitus, patient oriented x3, no limitations, healthy appearing, alert and well nourished HENMT: COMMON NORMALS: normocephalic, atraumatic and moist oral mucous membranes HEAD & SCALP: normocephalic and atraumatic Neck/C-Spine: COMMON NORMALS: no meningeal signs and no JVD Resp: COMMON NORMALS: normal respiratory effort, No retractions, No use of accessory muscles, clear to auscultation bilaterally and percussion normal AUSCULTATION: clear to auscultation bilaterally PERCUSSION: percussion normal Cardio: COMMON NORMALS: no JVD, regular rate, regular rhythm, S1 normal heart sound present, S2 normal heart sound present, No gallops present (Cardio), No clicks present (Cardio), No murmurs present (Cardio), No rub (Cardio) and Peripheral pulses 2+ throughout RATE: regular rate RHYTHM: regular rhythm HEART SOUNDS: S1 normal heart sound present and S2 normal heart sound present PERIPHERAL PULSES: Peripheral pulses 2+ throughout GI: COMMON NORMALS: Normal to inspection, nondistended, normoactive bowel sounds present, Soft to palpation, non-tender, No hepatosplenomegaly present, no masses and no bruits PALPATION: Yes Soft to palpation and Yes No hepatosplenomegaly present : COMMON NORMALS: Yes no CVA tenderness BLADDER/KIDNEY EXAM: Yes no CVA tenderness Back/Pelvis: COMMON NORMALS: no CVA tenderness Extremity: COMMON NORMALS: normal to inspection, full ROM, capillary refill normal, no calf tenderness and no pedal edema Neuro: COMMON NORMALS: patient oriented x3 SENSORIUM/ORIENTATION: Yes alert MENINGEAL SIGNS: Yes no meningeal signs Skin: COMMON NORMALS: no rashes or lesions noted, turgor normal, no jaundice, no petechiae and no mottling GENERAL SKIN EXAM: no rashes or lesions noted and turgor normal TRAUMA: laceration (multiple superficial lacerations on his arms. Non bleeding, not infected.) MDM - Psych MDM Narrative: Medical decision making narrative: 29 year old male who was brought in to the ED with concerns of suicidal ideations with a plan. He is medically cleared and is admitted to the NPU for further evaluation and management. Medical Records: Attestation: I reviewed the patient's medical records. Lab Data: Attestation: I reviewed the patient's lab results. Labs: Lab Results 09/06/20 09/06/20 09/06/20 Range/Units 14:32 14:32 14:39 WBC 10.4 H (4.0-10.0) 10^3/ uL RBC 4.20 (4.1-5.3) 10^6/u L Hgb 14.1 (11.7-16.6) g/dL Hct 41.2 L (42.0-52.0) % MCV 98.1 H (80-94) fL MCH 33.6 (28.0-34.0) pg MCHC 34.2 (30.0-36.0) g/dL RDW 12.7 (12.1-15.1) % Plt Count 171 (130-400) 10^3/c mm MPV 10.2 (7.4-10.4) fL Neut % (Auto) 84.7 % Lymph % (Auto) 10.0 % Highland % (Auto) 4.5 % Eos % (Auto) 0.1 % Baso % (Auto) 0.3 % Neut # (Auto) 8.77 H (1.8-7.7) 10^3/u L Lymph # (Auto) 1.0 (0.8-4.8) 10^3/u L Highland # (Auto) 0.5 (0.2-0.9) 10^3/u L Eos # (Auto) 0.0 (0.0-0.8) 10^3/u L Baso # (Auto) 0.0 (0.0-0.1) 10^3/u L Nucleated RBC % (a uto) 0 % Nucleated RBCs # 0.0 /100WBC Sodium 140 (136-145) mmol/L Potassium 3.9 (3.5-5.1) mmol/L Chloride 102 (98-107) mmol/L Carbon Dioxide 24 (22-29) mmol/L Anion Gap 17.9 (5-19) BUN 8 (6-20) mg/dL Creatinine 0.5 L (0.7-1.2) mg/dL GFR Calculation 198.0 H (90-130) mL/min Glucose 97 (65-115) mg/dL Calculated Osmolal ity 288 (285-295) mOsm/k g Calcium 9.2 (8.5-10.5) mg/dL Total Bilirubin 0.3 (0.15-1.2) mg/dL AST 16 (0-40) U/L ALT 11 (0-41) U/L Alkaline Phosphata se 108 (40-130) IU/L Total Protein 7.4 (6.6-8.7) g/dL Albumin 4.3 (3.5-5.2) g/dL Globulin 3.1 (1.3-4.6) g/dL Urine Color Dark yellow (Yellow) Urine Appearance Clear (CLEAR) Urine pH 6.5 (5-7) Ur Specific Gravit y 1.020 (1.005-1.030) Urine Protein Neg (Negative) Urine Glucose (UA) Norm (Normal) Urine Ketones 2+ H (Negative) Urine Blood 3+ H (Negative) Urine Nitrate Negative (Negative) Urine Bilirubin 1+ H (Negative) Urine Urobilinogen 1 H (Negative) mg/dL Ur Leukocyte Diana ase Negative (Negative) Urine RBC 25-40 H (0-2) /hpf Urine WBC None (0-5) /hpf Ur Squamous Epith Cells None (0-5) /hpf Amorphous Sediment Not Reportable Urine Bacteria 1+ H (NONE) /hpf Urine Mucus 2+ /hpf Salicylates < 0.3 L (3-10) mg/dL Urine Opiates Scre en (Negative) ng/mL Acetaminophen < 5.0 L (10-30) ug/mL Ur Barbiturates Sc reen (Negative) ng/mL Ur Phencyclidine S crn (Negative) ng/mL Ur Amphetamines Sc reen (Negative) ng/mL U Benzodiazepines Scrn (Negative) ng/mL Urine Cocaine Scre en (Negative) ng/mL U Marijuana (THC) Screen (Negative) ng/mL Ethyl Alcohol < 10 (0-10) mg/dL 09/06/20 Range/Units 14:39 WBC (4.0-10.0) 10^3/ uL RBC (4.1-5.3) 10^6/u L Hgb (11.7-16.6) g/dL Hct (42.0-52.0) % MCV (80-94) fL MCH (28.0-34.0) pg MCHC (30.0-36.0) g/dL RDW (12.1-15.1) % Plt Count (130-400) 10^3/c mm MPV (7.4-10.4) fL Neut % (Auto) % Lymph % (Auto) % Highland % (Auto) % Eos % (Auto) % Baso % (Auto) % Neut # (Auto) (1.8-7.7) 10^3/u L Lymph # (Auto) (0.8-4.8) 10^3/u L Highland # (Auto) (0.2-0.9) 10^3/u L Eos # (Auto) (0.0-0.8) 10^3/u L Baso # (Auto) (0.0-0.1) 10^3/u L Nucleated RBC % (a uto) % Nucleated RBCs # /100WBC Sodium (136-145) mmol/L Potassium (3.5-5.1) mmol/L Chloride (98-107) mmol/L Carbon Dioxide (22-29) mmol/L Anion Gap (5-19) BUN (6-20) mg/dL Creatinine (0.7-1.2) mg/dL GFR Calculation (90-130) mL/min Glucose (65-115) mg/dL Calculated Osmolal ity (285-295) mOsm/k g Calcium (8.5-10.5) mg/dL Total Bilirubin (0.15-1.2) mg/dL AST (0-40) U/L ALT (0-41) U/L Alkaline Phosphata se (40-130) IU/L Total Protein (6.6-8.7) g/dL Albumin (3.5-5.2) g/dL Globulin (1.3-4.6) g/dL Urine Color (Yellow) Urine Appearance (CLEAR) Urine pH (5-7) Ur Specific Gravit y (1.005-1.030) Urine Protein (Negative) Urine Glucose (UA) (Normal) Urine Ketones (Negative) Urine Blood (Negative) Urine Nitrate (Negative) Urine Bilirubin (Negative) Urine Urobilinogen (Negative) mg/dL Ur Leukocyte Diana ase (Negative) Urine RBC (0-2) /hpf Urine WBC (0-5) /hpf Ur Squamous Epith Cells (0-5) /hpf Amorphous Sediment Urine Bacteria (NONE) /hpf Urine Mucus /hpf Salicylates (3-10) mg/dL Urine Opiates Scre en Negative (Negative) ng/mL Acetaminophen (10-30) ug/mL Ur Barbiturates Sc reen Negative (Negative) ng/mL Ur Phencyclidine S crn Negative (Negative) ng/mL Ur Amphetamines Sc reen Negative (Negative) ng/mL U Benzodiazepines Scrn Negative (Negative) ng/mL Urine Cocaine Scre en Negative (Negative) ng/mL U Marijuana (THC) Screen Positive H (Negative) ng/mL Ethyl Alcohol (0-10) mg/dL Discharge Plan Discharge Patient Disposition: Admitted As Inpatient Admit Provider: Rhys Polk Clinical Impression: Suicidal ideation Condition: Stable Discharge Diet: Regular Discharge Activity: Resume usual activity Coding Level of Care Code ED Career Based Intervention Coordinator for Nhan Ruano
--- NOTE | 2020-09-07 05:17 | PC.NURSE ---
PM ASSESSMENT HEART/LUNG SOUNDS NORMAL, V/S ARE WNL, DENIES PAIN, DENIES SI/HI, ENDORSES DEPRESSED MOOD AND FEELINGS OF SADNESS,. DENIES AH/VH. PT IS COOPERATIVE WITH STAFF, ASKS AND ANSWERS QUESTION APPROPRIATELY, SEEMS WITHDRAWN, WILL CONTINUE TO OBSERVE PATIENT BEHAVIOR.
[2020-09-07 06:00] VITALS: BP 122/73; PULSE 69; RESP 16; TEMP 36.9; O2SAT 97
[2020-09-07 14:00] VITALS: BP 115/71; PULSE 70; RESP 20; TEMP 36.8; O2SAT 97
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
[2020-09-07] MEDS: nicotine 2 mg Gum BUCCAL (17:13)
[2020-09-07] MEDS: hyDROXYzine 25 mg Capsule 50 MG PO ×2 (17:13→22:32)
--- NOTE | 2020-09-07 17:13 | PC.NURSE ---
PRN VISTARIL 50 MG GIVEN PO PER PT C/O STATED ANXIETY. PT UPSET AFTER PHONE CALL, CURSING LOUDLY ON THE PHONE. WILL CONT TO MONITOR.
--- NOTE | 2020-09-07 17:37 | PC.RESP ---
Smoking Cessation information sent to patient.
[2020-09-07 22:00] VITALS: BP 112/71; PULSE 77; TEMP 36.9
[2020-09-07] MEDS: thiamine 100 mg Tablet PO (22:31)
[2020-09-07] MEDS: lamoTRIgine 100 mg Tablet PO (22:31)
[2020-09-07] MEDS: trazodone 50 mg Tablet PO (22:32)
[2020-09-07] MEDS: prazosin 1 mg Capsule 2 MG PO (22:32)
[2020-09-08 05:38] VITALS: BP 89/56; PULSE 76; TEMP 36.8; O2SAT 95
[2020-09-08] MEDS: escitalopram 10 mg Tablet 20 MG PO (08:48)
[2020-09-08] MEDS: lamoTRIgine 25 mg Tablet PO (08:49)
[2020-09-08 12:59] VITALS: BP 107/73; PULSE 84; RESP 16; TEMP 37; O2SAT 94
[2020-09-08] MEDS: nicotine 2 mg Gum BUCCAL ×3 (13:11→20:01)
--- NOTE | 2020-09-08 19:45 | PM.NPN ---
Subjective NPU Subjective: Interval history: Patient is in today reporting that things are going a little better. He is tolerating the medication. He is glad that he came to the hospital but he not wanting to continue this pattern. He is not sure that returning to that situation will yield a positive outcome and we discussed the risks, benefits and alternatives of making changes to find a safer discharge for him and he understood and agreed this is documented in this note. Mental Status Exam MSE Comments: This is an underweight white male in hospital scrubs with improving grooming and appropriate eye contact. No abnormal movements except for mild psychomotor retardation. He has significant superficial scrapes and scratches that are self-inflicted on his forearms. Cooperative with exam in no acute distress. Speech was slightly decreased rate and volume. Mood described as a little better, affect congruent. Thought process organized. Thought content: Patient denied suicidal and homicidal ideation , there were no delusions reported or noted, he denied any auditory visual hallucinations. Attention and concentration were intact and memory was reliable but none were formally tested. He is alert and oriented x3. Insight and judgment are fair and impulse control is limited, but improving. Vitals/I&O/Wt Last Vital Signs Temp 97.9 F 09/08/20 21:37 Pulse 83 09/08/20 21:37 Resp 19 H 09/08/20 21:37 BP 114/79 09/08/20 21:37 Pulse Ox 93 09/08/20 21:37 Data NPU : 09/06/20 14:32 09/06/20 14:32 Micro: Microbiology 09/06/20 14:39 Urine Culture - Preliminary Urine,Clean Catch Microbiology 09/06/20 14:39 Urine,Clean Catch Urine Culture - Preliminary A&P Additional A&P Information (1) Major depressive disorder, recurrent, in partial remission: (2) Borderline personality disorder: (3) PTSD (post-traumatic stress disorder): (4) Partner relational problem: Additional A&P Information This is a 29-year-old white male with a long history of trauma, addiction and cluster B pathology who presents with partner relational problems and active self-injurious behaviors open to medication adjustment. 1. Continue current medication. 2. Continue every 15 minute checks for safety. 3. Encourage individual, group and milieu therapies. 4. Encourage sober living treatment after discharge at the highest level of care to which he is willing to commit. Involuntary Hold Information 96 Hour Hold: 96 Hour Involuntary Admission: Yes 96 Hour Hold Ending Date: 09/12/20 96 Hour Hold Ending Time: 17:00 Attestations NPU Medical Necessity Statement*: Inpatient hospitalization is medically necessary and the clinically appropriate intervention at this time. We will monitor medications and make changes as indicated. Likely length of stay 1-3 days. Coding Level of Care Code Acute Automotive Sales Representative for Nhan Ruano
[2020-09-08 21:37] VITALS: BP 114/79; PULSE 83; RESP 19; TEMP 36.6; O2SAT 93
[2020-09-08] MEDS: prazosin 1 mg Capsule 2 MG PO (21:56)
[2020-09-08] MEDS: lamoTRIgine 100 mg Tablet PO (21:57)
[2020-09-08] MEDS: thiamine 100 mg Tablet PO (21:57)
[2020-09-08] MEDS: blistex lip oint 7 gm Tube 1 APPLIC TOPICAL (21:57)
--- NOTE | 2020-09-08 21:58 | PC.NURSE ---
Patient requested Blistex for his dry lips. One application of Blistex given.
[2020-09-09 06:00] VITALS: BP 116/80; PULSE 74; RESP 15; TEMP 36.8; O2SAT 96
[2020-09-09] MEDS: lamoTRIgine 25 mg Tablet PO (08:36)
[2020-09-09] MEDS: escitalopram 10 mg Tablet 20 MG PO (08:36)
[2020-09-09] MEDS: nicotine 2 mg Gum BUCCAL ×2 (11:40→15:30)
[2020-09-09 14:00] VITALS: BP 114/76; PULSE 78; RESP 17; TEMP 37.4; O2SAT 96
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
[2020-09-09 18:30] VITALS: BP 114/76; PULSE 78; RESP 17; TEMP 37.4; O2SAT 96
== END 2020-09-09 18:45 | disposition home or self-care (01) | DRG 885 ==
LOC: ER 17:04 → NP 17:51
PROVIDERS: Admitting Provider Psychiatry & Neurology Psychiatry; Emergency Provider Family Medicine; Visit Provider Psychiatry & Neurology Psychiatry
DX: F33.41 Major depressive disorder, recurrent, in partial remission (principal); R45.851 Suicidal ideations; Z63.0 Problems in relationship with spouse or partner; F17.210 Nicotine dependence, cigarettes, uncomplicated; F10.10 Alcohol abuse, uncomplicated; Z91.5 Personal history of self-harm; F60.3 Borderline personality disorder; F43.12 Post-traumatic stress disorder, chronic; F60.89 Other specific personality disorders
CPT/HCPCS: 80053; 80306; 80307; 81001; 85025; 87086; 99285

== ENCOUNTER 2020-10-09 00:29 | Inpatient (IN) | payer SELFPAY ==
[2020-10-09] VITALS (7 sets, daily range): BP systolic 90–136; BP diastolic 57–87; PULSE 83–115; RESP 15–18; TEMP 36.4–36.9; O2SAT 94–98; BMI 19.5
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
[2020-10-09 01:03] LABS: Basophils % 0.4 %; Eosinophils # 0.1 10^3/uL (0.0-0.8); Eosinophils % 0.7 %; Hematocrit 48.7 % (42.0-52.0); Hemoglobin 15.9 g/dL (11.7-16.6); Lymphocytes % 35.6 %; Mean Corpuscular HGB Conc 32.6 g/dL (30.0-36.0); Mean Corpuscular Hemoglobin 32.4 pg (28.0-34.0); Mean Corpuscular Volume 99.4 fL (80-94); Monocytes # 0.6 10^3/uL (0.2-0.9); Monocytes % 6.6 %; Neutrophils # 4.76 10^3/uL (1.8-7.7); Neutrophils % 56.5 %; Nucleated Red Blood Cells % 0 %; Platelet Count 241 10^3/cmm (130-400); White Blood Count 8.4 10^3/uL (4.0-10.0)
[2020-10-09 01:21] LABS: Alanine Aminotransferase 11 U/L (0-41); Alcohol Level 274 mg/dL (0-10); Alkaline Phosphatase 82 IU/L (40-130); Anion Gap 19.3 (5-19); Aspartate Amino Transferase 18 U/L (0-40); Blood Urea Nitrogen 9 mg/dL (6-20); Calcium 9.1 mg/dL (8.5-10.5); Carbon Dioxide 25 mmol/L (22-29); Chloride 103 mmol/L (98-107); Globulin 3.1 g/dL (1.3-4.6); Glomerular Filtration Rate 134.3 mL/min (90-130); Glucose 95 mg/dL (65-115); Osmolality Calculated 294 mOsm/kg (285-295); Potassium 4.3 mmol/L (3.5-5.1); Sodium 143 mmol/L (136-145); Total Bilirubin 0.3 mg/dL (0.15-1.2); Total Protein 8.1 g/dL (6.6-8.7)
[2020-10-09 01:23] LABS: Acetaminophen < 5.0 ug/mL (10-30); Salicylate < 0.3 mg/dL (3-10)
[2020-10-09] MEDS: ondansetron 4 MG Tablet PO ×2 (03:30→04:33)
[2020-10-09] MEDS: LORazepam 2 mg Tablet PO (03:30)
--- NOTE | 2020-10-09 04:09 | PC.NURSE ---
0100: Assumed care of pt at this time. Pt comes to ED per EMS accompanied by law enforcement. EMS states that pt is SI. Upon arrival, pt is upset, d/t having to be here. Stated that he is not SI, just wants to have his evening meds. VSS upon arrival. After speaking to provider, pt then settled now and became more agreeable to further tx and care. Sitter is at bedside.
[2020-10-09] MEDS: acetaminophen 325 mg Tablet 650 MG PO (04:33)
[2020-10-09 04:48] LABS: Alcohol Level 184 mg/dL (0-10)
[2020-10-09 04:53] LABS: Amphetamines Screen Urine Negative (Negative); Barbiturates Screen Urine Negative (Negative); Benzodiazepines Screen Urine Negative (Negative); Cocaine Screen Urine Negative (Negative); Opiate Screen Urine Negative (Negative); PCP Screen Urine Negative (Negative); THC Screen Urine Positive (Negative)
--- NOTE | 2020-10-09 10:00 | PC.NURSE ---
SCHEDULED 0900 MEDS NOT GIVEN D/T LEVEL OF SEDATION & PT IS UNABLE TO SAFELY SWALLOW MEDICATIONS
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
[2020-10-09] MEDS: trazodone 50 mg Tablet PO (20:53)
[2020-10-09] MEDS: prazosin 1 mg Capsule PO (20:53)
[2020-10-09] MEDS: hyDROXYzine 25 mg Capsule 50 MG PO (20:54)
--- NOTE | 2020-10-09 21:27 | PC.NURSE ---
2052 Pt requested Trazadone 50mg PO and Vistaril 50mg po for sleep and anxiety
[2020-10-10 06:00] VITALS: BP 102/62; PULSE 78; RESP 18; TEMP 36.8; O2SAT 98
[2020-10-10] MEDS: multivitamin therapeutic Tablet 1 TAB PO (09:46)
[2020-10-10] MEDS: thiamine 100 mg Tablet PO (09:46)
[2020-10-10] MEDS: escitalopram 10 mg Tablet PO (09:46)
[2020-10-10] MEDS: folic acid 1 mg Tablet PO (09:46)
[2020-10-10 14:00] VITALS: BP 101/66; PULSE 88; RESP 16; TEMP 37; O2SAT 95
--- NOTE | 2020-10-10 18:03 | PM.NPN ---
Subjective NPU Subjective: Interval history: King presents today endorsing some improvement in how he is feeling at 1 level, but feeling very distraught and hopeless at another. He started having conversations with his family about where he might go while he is trying to prepare for the new job that he has obtained and it appears to him and everyone is giving up on him. 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 On top of that he worries that his mood and recovery are at risk. We agreed we will work with the treatment team in the morning to come up with the best solution possible considering his circumstances. Mental Status Exam MSE Comments: This is an underweight white male in hospital scrubs with limited grooming but appropriate eye contact. No abnormal movements except for mild psychomotor retardation. Cooperative with exam in mild distress. Speech was decreased rate and volume. Mood described as hopeless, affect congruent. Thought process organized. Thought content: Patient denied suicidal and homicidal ideation, but he reports feeling like he does not know if it is worth it, there were no delusions reported or noted, he denied any auditory visual hallucinations. Attention and concentration were intact and memory was reliable but none were formally tested. He is alert and oriented x3. Insight and judgment are fair and impulse control is limited. Vitals/I&O/Wt Last Vital Signs Temp 98.6 F 10/10/20 22:00 Pulse 91 10/10/20 22:00 Resp 17 10/10/20 22:00 BP 116/70 10/10/20 22:00 Pulse Ox 94 10/10/20 22:00 Weight last 48 hrs Weight 56.699 kg Data NPU : 10/09/20 00:55 10/09/20 00:55 A&P Additional A&P Information (1) Major depressive disorder, recurrent, in partial remission: (2) Borderline personality disorder: (3) PTSD (post-traumatic stress disorder): (4) Partner relational problem: Additional A&P Information This is a 29-year-old white male with a long history of trauma, addiction and cluster B pathology who presents after [place] [facility] [place] to go and feeling hopeless, now feeling a little better. 1. Continue current medication. 2. Continue every 15 minute checks for safety. 3. Encourage individual, group and milieu therapies. 4. Encourage sober living treatment after discharge at the highest level of care to which he is willing to commit. Involuntary Hold Information 96 Hour Hold: 96 Hour Involuntary Admission: No 96 Hour Hold Ending Date: 09/12/20 96 Hour Hold Ending Time: 17:00 Attestations NPU Medical Necessity Statement*: Inpatient hospitalization is medically necessary and the clinically appropriate intervention at this time. We will monitor medications and make changes as indicated. Likely length of stay 1-3 days. Coding Level of Care Code Acute Air Conditioning Installer for Nhan Ruano
--- NOTE | 2020-10-10 19:04 | PC.RESP ---
SMOKING CESSATION INFORMATION SENT TO PATIENT.
[2020-10-10] MEDS: prazosin 1 mg Capsule PO (21:28)
[2020-10-10 22:00] VITALS: BP 116/70; PULSE 91; RESP 17; TEMP 37; O2SAT 94
[2020-10-11 06:00] VITALS: RESP 18
[2020-10-11] MEDS: thiamine 100 mg Tablet PO (09:52)
[2020-10-11] MEDS: folic acid 1 mg Tablet PO (09:52)
[2020-10-11] MEDS: escitalopram 10 mg Tablet PO (09:52)
[2020-10-11] MEDS: multivitamin therapeutic Tablet 1 TAB PO (09:52)
[2020-10-11 14:00] VITALS: BP 107/73; PULSE 68; RESP 16; TEMP 36.3; O2SAT 95
--- NOTE | 2020-10-11 16:06 | P.PN_ITS ---
Subjective NPU Subjective: Interval history: King presents today reporting that he is upset by his family response and is really struggling to let go of this aspect of the situation he finds himself in. He did spend a little time on his choice but is spending a lot of his energy on how they have seen how hard he is trying and it does not matter to them. He says his only option is going to [facility] in [place] but does not seem to see any positive in his situation. Mental Status Exam MSE Comments: This is an underweight white male in hospital scrubs with adequate grooming and limited eye contact. No abnormal movements except for mild psychomotor retardation. Cooperative with exam in mild distress. Speech was decreased rate and volume. Mood described as I do not know, affect congruent somewhat irritable. Thought process organized. Thought content: Patient denied suicidal and homicidal ideation, but was clearly frustrated with the situation he finds himself in in his family response, there were no delusions reported or noted, he denied any auditory visual hallucinations. Attention and concentration were intact and memory was reliable but none were formally tested. He is alert and oriented x3. Insight and judgment are fair and impulse control is limited. Vitals/I&O/Wt Last Vital Signs Temp 97.4 F L 10/11/20 14:00 Pulse 68 10/11/20 14:00 Resp 16 10/11/20 14:00 BP 107/73 10/11/20 14:00 Pulse Ox 95 10/11/20 14:00 Data NPU : 10/09/20 00:55 10/09/20 00:55 A&P Additional A&P Information (1) Major depressive disorder, recurrent, in partial remission: (2) Borderline personality disorder: (3) PTSD (post-traumatic stress disorder): (4) Partner relational problem: Additional A&P Information This is a 29-year-old white male with a long history of trauma, addiction and cluster B pathology who presents after leaving [facility] [place] [place] with nowhere to go and feeling hopeless, now feeling a little better. 1. Continue current medication. 2. Continue every 15 minute checks for safety. 3. Encourage individual, group and milieu therapies. 4. Encourage sober living treatment after discharge at the highest level of care to which he is willing to commit with a plan to go to [facility] tomorrow. Involuntary Hold Information 96 Hour Hold: 96 Hour Involuntary Admission: No 96 Hour Hold Ending Date: 09/12/20 96 Hour Hold Ending Time: 17:00 Attestations NPU Medical Necessity Statement*: Inpatient hospitalization is medically necessary and the clinically appropriate intervention at this time. We will monitor medications and make changes as indicated. Discharge in the morning. Coding Level of Care Code Acute Waste Treatment Operator for Nhan Ruano
[2020-10-11] MEDS: prazosin 1 mg Capsule PO (21:29)
[2020-10-11 22:00] VITALS: BP 114/73; PULSE 73; RESP 16; TEMP 37.2; O2SAT 95
[2020-10-12 06:00] VITALS: BP 99/66; PULSE 76; RESP 15; TEMP 36.8; O2SAT 97
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
[2020-10-12 08:11] VITALS: BP 99/66; PULSE 76; RESP 15; TEMP 36.8; O2SAT 97
[2020-10-13 22:04] LABS: Lamotrigine (Lamictal) Level <0.5 mcg/mL (4.0-18.0)
== END 2020-10-12 08:30 | disposition home or self-care (01) | DRG 885 ==
LOC: ER 01:38 → NP 07:46
PROVIDERS: Physician Assistant; Admitting Provider Psychiatry & Neurology Psychiatry; Emergency Provider Emergency Medicine; Visit Provider Psychiatry & Neurology Psychiatry
DX: F33.41 Major depressive disorder, recurrent, in partial remission (principal); R45.851 Suicidal ideations; F17.210 Nicotine dependence, cigarettes, uncomplicated; F60.3 Borderline personality disorder; F43.10 Post-traumatic stress disorder, unspecified; Z63.9 Problem related to primary support group, unspecified; F60.89 Other specific personality disorders
CPT/HCPCS: 36415; 80053; 80175; 80306; 80307; 85025; 99285; Q0162